=== PATIENT | female | born 1980 | race Caucasian/White ===

== ENCOUNTER 2018-09-20 09:24 | Emergency (ER) | payer BC, OTHER ==
[~2018-09-20] VITALS: Ht 172.7 cm; Wt 149.7 kg
[~2018-09-20 09:24] MED LIST: ALEVE220 M1 PO; ANTIVERT25 MG PO; CARISOPRODOL 3350 MG PO; CIPROFLOXACIN500 M1 PO; FLONASE 0.05%50 MCG NASAL; HYDROCHLOROTHIA25 M2 PO; LABETALOL HCL100 MG PO; LISINOPRIL10 MG PO; NAPROSYN500 MG PO; PHENTERMINE H37.5 MG PO
[2018-09-20] MEDS ORDERED: MEDROLDOSEPACK PO (10:24)
[2018-09-20 10:32] VITALS: BP 152/88
== END 2018-09-20 10:42 | disposition home or self-care (01) ==
LOC: ER 09:24
DX: J20.8 Acute bronchitis due to other specified organisms (principal); B97.89 Other viral agents as the cause of diseases classified elsewhere; I10 Essential (primary) hypertension; Z98.890 Other specified postprocedural states

== ENCOUNTER → 2021-10-24 | Outpatient (CLI) | payer OTHER ==
[~2021-10-24] MED LIST changes: +MEDROLDOSEPACK PO
== END ==
LOC: SJCVCIMAG 08:58
PROVIDERS: ATTEND Internal Medicine
DX: I10 Essential (primary) hypertension (principal)